=== PATIENT | female | born 1985 | race Caucasian/White ===

== ENCOUNTER 2016-12-22 06:05 | Day surgery (SDC) | payer BC ==
[~2016-12-22] VITALS: Ht 154.9 cm; Wt 59.0 kg
[2016-12-22 07:00] LABS: BASOPHILS # (AUTO) 0.3 K/uL (0.00-0.22); BASOPHILS % (AUTO) 3.9 % (0.0-2.0); EOSINOPHILS # (AUTO) 0.2 K/uL (0-0.4); EOSINOPHILS % (AUTO) 3.2 % (0.0-4.0); HEMATOCRIT 36.8 % (36-48); LYMPHOCYTES # (AUTO) 2.8 K/uL (2.5-16.5); LYMPHOCYTES % (AUTO) 37.4 % (20.5-51.1); MEAN CORPUSCULAR HEMOGLOBIN 27 pg (27-31); MEAN CORPUSCULAR HGB CONC 33 g/dL (33-37); MEAN CORPUSCULAR VOLUME 82 fL (80-94); MONOCYTES # (AUTO) 0.4 K/uL (0.8-1.0); MONOCYTES % (AUTO) 5.8 % (1.7-9.3); NEUTROPHILS # (AUTO) 3.7 K/uL (1.8-7.7); NEUTROPHILS % (AUTO) 49.7 % (42.2-75.2); PLATELET COUNT (AUTO) 274 K/uL (140-450); RED CELL DISTRIBUTION WIDTH 13.2 % (11.6-13.7); WHITE BLOOD COUNT (AUTO) 7.4 K/uL (4.8-10.8)
[2016-12-22 07:09] LABS: ANION GAP 12.7 (8-16); CARBON DIOXIDE 27.1 mmol/L (21-32); CREATININE 0.6 mg/dL (0.6-1.3); POTASSIUM 3.8 mmol/L (3.5-5.1)
[2016-12-22 07:15] LABS: ALBUMIN 3.7 g/dL (3.4-5.0); TOTAL BILIRUBIN 0.2 mg/dL (0.0-1.0)
[2016-12-22] MEDS ORDERED: SEVOFLURANE 250 ML BTL INH ONE (07:25)
[2016-12-22] MEDS ORDERED: PROPOFOL 200 MG/20 ML VIAL IV ONE (07:25)
[2016-12-22] MEDS ORDERED: LIDOCAINE 1% 50 ML ONE (07:27)
[2016-12-22] MEDS ORDERED: BUPIVACAINE-MPF 0.25% 30 ML VIAL INJ ONE (07:27)
[2016-12-22] MEDS ORDERED: fentaNYL 0.05 MG/ML VIAL ONE (07:39)
[2016-12-22] MEDS ORDERED: MIDAZOLAM 2 MG/2 ML VIAL ONE (07:39)
[2016-12-22] MEDS ORDERED: ONDANSETRON 4 MG/2 ML VIAL IVP PRN (08:05)
[2016-12-22] MEDS ORDERED: HYDROmorphone 1 MG/ML AMP IVP PRN ×2 (08:05→08:45)
[2016-12-22] MEDS ORDERED: HYDROcodone/APAP 5/325 MG 1 TAB TAB PO PRN (08:45)
[2016-12-22] MEDS ORDERED: ONDANSETRON 4 MG/2 ML VIAL IV PRN (08:45)
[2016-12-22] MEDS ORDERED: MORPHINE SULFATE 4 MG/ML SYR IV PRN (08:45)
== END 2016-12-22 10:50 | disposition home or self-care (01) ==
LOC: MDS 06:05 → MMU 06:05 → MDS 10:50
PROVIDERS: ATTEND Surgery
DX: N60.01 Solitary cyst of right breast (principal); I11.9 Hypertensive heart disease without heart failure; E11.22 Type 2 diabetes mellitus with diabetic chronic kidney disease; N18.9 Chronic kidney disease, unspecified; K21.9 Gastro-esophageal reflux disease without esophagitis; D64.9 Anemia, unspecified; F03.90 Unspecified dementia, unspecified severity, without behavioral disturbance, psychotic disturbance, mood disturbance, and anxiety; G40.909 Epilepsy, unspecified, not intractable, without status epilepticus; E66.3 Overweight; J45.909 Unspecified asthma, uncomplicated; F17.210 Nicotine dependence, cigarettes, uncomplicated
CPT/HCPCS: 19120; 36415; 71010; 80053; 81025; 85025; J0690; J2001; J2250; J2704; J3010; J3490; J7060; J7120